=== PATIENT | female | born 1965 | race Caucasian/White ===

== ENCOUNTER 2017-12-09 15:02 | Outpatient (CLI) | payer OTHER | END 2017-12-09 17:00 | disposition home or self-care (01) | LOC: RAD 15:02 | DX: S82.892A Other fracture of left lower leg, initial encounter for closed fracture (principal) ==

== ENCOUNTER → 2018-02-26 | Outpatient (CLI) | payer OTHER | END | disposition home or self-care (01) | LOC: MAMO-SONO 14:17 | DX: Z12.31 Encounter for screening mammogram for malignant neoplasm of breast (principal); N63.10 Unspecified lump in the right breast, unspecified quadrant; N63.20 Unspecified lump in the left breast, unspecified quadrant; N64.4 Mastodynia; E04.1 Nontoxic single thyroid nodule; E06.9 Thyroiditis, unspecified ==

== ENCOUNTER → 2018-05-10 07:05 | Outpatient (CLI) | payer OTHER ==
[~2018-05-10 07:05] MED LIST: SYNTHROID75 MCG PO
== END | disposition home or self-care (01) ==
LOC: RAD 07:05
DX: K64.3 Fourth degree hemorrhoids (principal)

== ENCOUNTER 2018-05-14 05:55 | Day surgery (SDC) | payer OTHER | END 2018-05-14 14:10 | disposition home or self-care (01) | LOC: CIR.AMB 05:55 → LAB 12:44 → CIR.AMB 14:10 | DX: K64.8 Other hemorrhoids (principal); K64.4 Residual hemorrhoidal skin tags ==

== ENCOUNTER 2020-01-20 18:28 | Outpatient (CLI) | payer OTHER | END 2020-01-20 18:33 | disposition home or self-care (01) | LOC: RAD 18:28 | DX: Z01.89 Encounter for other specified special examinations (principal) ==

== ENCOUNTER → 2020-12-01 | Outpatient (CLI) | payer OTHER | END | disposition home or self-care (01) | LOC: MRI 06:32 | PROVIDERS: ATTEND Neurological Surgery | DX: R92.2 Inconclusive mammogram (principal); M25.561 Pain in right knee | CPT/HCPCS: 73218 ==

== ENCOUNTER 2022-01-30 13:11 | Outpatient (CLI) | payer OTHER | END 2022-01-30 16:01 | disposition home or self-care (01) | LOC: MAMO-SONO 13:11 | PROVIDERS: ATTEND Radiology Diagnostic Radiology | DX: Z12.13 Encounter for screening for malignant neoplasm of small intestine (principal); Z12.31 Encounter for screening mammogram for malignant neoplasm of breast ==

== ENCOUNTER 2022-05-31 14:02 | Outpatient (CLI) | payer OTHER | END 2022-05-31 14:20 | disposition home or self-care (01) | LOC: RAD 14:02 | PROVIDERS: ATTEND Radiology Diagnostic Radiology | DX: M25.561 Pain in right knee (principal) ==

== ENCOUNTER 2022-08-22 14:22 | Outpatient (CLI) | payer OTHER | END 2022-08-22 15:55 | disposition home or self-care (01) | LOC: MRI 14:22 | DX: S83.281A Other tear of lateral meniscus, current injury, right knee, initial encounter (principal) | CPT/HCPCS: 73721 ==

== ENCOUNTER 2024-08-13 12:09 | Outpatient (CLI) | payer OTHER | END 2024-08-13 12:40 | disposition home or self-care (01) | LOC: MAMO-SONO 12:09 → EDBD 12:09 → MAMO-SONO 12:40 | PROVIDERS: ATTEND Radiology Diagnostic Radiology | DX: Z13.9 Encounter for screening, unspecified (principal) ==

== ENCOUNTER 2024-09-11 11:43 | Outpatient (CLI) | payer OTHER | END 2024-09-11 12:05 | disposition home or self-care (01) | LOC: SONOGRAMA 11:43 | PROVIDERS: ATTEND Radiology Diagnostic Radiology | DX: N60.12 Diffuse cystic mastopathy of left breast (principal) ==

== ENCOUNTER 2024-12-31 14:00 | Outpatient (CLI) | payer OTHER | END 2024-12-31 14:08 | disposition home or self-care (01) | LOC: NUCLEAR 14:00 | DX: M81.0 Age-related osteoporosis without current pathological fracture (principal) ==